=== PATIENT | female | born 1965 | race Caucasian/White ===

== ENCOUNTER 2020-09-24 09:45 | Emergency (ER) | payer BC ==
[~2020-09-24] VITALS: Ht 160 cm; Wt 81.8 kg
[2020-09-24 09:47] VITALS: BP 175/88
--- NOTE | 2020-09-24 09:55 | NUR ---
dr. marsh at bedside.
== END 2020-09-24 10:32 | disposition home or self-care (01) ==
LOC: ER 09:46
DX: S86.811A Strain of other muscle(s) and tendon(s) at lower leg level, right leg, initial encounter (principal); E11.9 Type 2 diabetes mellitus without complications; Z72.89 Other problems related to lifestyle; X50.0XXA Overexertion from strenuous movement or load, initial encounter; Y93.89 Activity, other specified; Y92.89 Other specified places as the place of occurrence of the external cause; Y99.8 Other external cause status
CPT/HCPCS: 99282; 99283

== ENCOUNTER 2023-02-03 16:27 | Emergency (ER) | payer BC ==
[~2023-02-03] VITALS: Ht 160 cm; Wt 78.6 kg
[2023-02-03 16:37] VITALS: BP 146/90
== END 2023-02-03 17:41 | disposition home or self-care (01) ==
LOC: ER 16:27
DX: M65.4 Radial styloid tenosynovitis [de Quervain] (principal); E11.9 Type 2 diabetes mellitus without complications
CPT/HCPCS: 73110; 99283